=== PATIENT | male | born 2005 | race Caucasian/White ===

== ENCOUNTER 2024-11-19 00:44 | Emergency (ER) | payer OTHER, SELFPAY ==
[2024-11-19 00:47] VITALS: BP 163/93; PULSE 100; RESP 16; TEMP 36.7; O2SAT 100; BMI 33.2
--- NOTE | 2024-11-19 00:49 | EKG12_ITS ---
Test Reason : Suicidal Blood Pressure : */* mmHG Vent. Rate : 87 BPM Atrial Rate : 87 BPM P-R Int : 132 ms QRS Dur : 72 ms QT Int : 338 ms P-R-T Axes : 26 42 22 degrees QTcB Int : 406 ms Normal sinus rhythm with sinus arrhythmia Normal ECG Confirmed by JOSH WILSON, LUPE ([id number]), video news editor SHELBY QUIROS ([id number]) on 11/25/2024 7:03:39 AM Referred By: Phani Confirmed By: LUPE MORENO MD
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
[2024-11-19 01:30] LABS: Absolute Lymphocyte Count 0.95 X10^3/uL (0.83-4.51); Absolute Neutrophil Count 6.9 X10^3/uL (2.0-7.7); Basophil# 0.06 X10^3/uL; Basophil% 0.7 % (0-1); Eosinophil# 0.06 X10^3/uL; Eosinophils% 0.7 % (0-5); Hemoglobin 16.6 g/dL (13.0-16.5); Lymphocyte # 0.95 X10^3/ul (0.83-4.51); Lymphocyte % 11.3 % (19-41); Mean Corp Hgb Conc 33.2 g/dL (32-36); Mean Corpuscular Hgb 26.7 pg (27.0-32.0); Mean Corpuscular Volume 80.5 fL (80-94); Monocyte# 0.45 X10^3/uL; Monocyte% 5.3 % (0-10); NRBC Flagged by Analyzer 0 % (0-5); Neutrophil # 6.87 X10^3/uL (2.7-7.7); Neutrophil % 81.4 % (47-70); Platelet Count 177 K/mm3 (150-450); RBC Distribution Width CV 14.4 % (11.6-14.6); RBC Distribution Width SD 41.3 fl (35.1-43.9); Red Blood Count 6.21 M/mm3 (4.6-6.2); White Blood Count 8.4 K/mm3 (4.4-11.0)
[2024-11-19 01:42] LABS: Alcohol, Blood (Medical)-Serum < 3.0 mg/dL
[2024-11-19 01:44] VITALS: PULSE 98; RESP 19; O2SAT 97
[2024-11-19 01:47] LABS: ALB/GLOB Ratio 1.1 RATIO (0.9-2.4); AST(SGOT) 29 U/L (15-37); Alanine Aminotransfer ALT/SGPT 80 U/L (16-61); Albumin, Serum 4.3 g/dL (3.2-5.0); Alkaline Phosphatase 124 U/L (45-117); Anion Gap 8 (5-15); BUN 12 mg/dL (7-18); BUN/Creat Ratio 12.5 RATIO (10-20); Calcium,Total 9.6 mg/dL (8.5-10.1); Chloride 106 mmol/L (98-107); Creatinine, Serum 0.96 mg/dL (0.70-1.30); EST Glomerular Filtration Rate 106 mL/min (>60); Est Glom Filt Rate - Afr Amer 128 mL/min (>60); Estimated Creatinine Clearance 122.64 ml/min; Glucose 111 mg/dL (74-106); Protein, Total 8.3 g/dL (6.4-8.2); Sodium Level 138 mmol/L (136-145)
[2024-11-19 02:13] LABS: Amphetamine Urine NEGATIVE (<1000 ng/mL); Barbiturate Urine VISTA NEGATIVE (< 200 ng/mL); Benzodiazepine Urine VISTA NEGATIVE (< 200 ng/mL); Cocaine Urine VISTA NEGATIVE (< 300 ng/mL); Ecstacy Urine VISTA NEGATIVE (< 500 ng/mL); Methadone Urine VISTA NEGATIVE (< 300 ng/mL); PCP Urine VISTA NEGATIVE (< 25 ng/mL); THC Urine VISTA NEGATIVE (< 50 ng/mL); Vista UDS pH Range 6
[2024-11-19 02:42] VITALS: BP 123/76; PULSE 77; RESP 17; O2SAT 96
--- NOTE | 2024-11-19 05:44 | ED.RN ---
[facility]OLD[facility] MELGAR CALLED ME TO ASK A FEW QUESTIONS ABOUT PT. AND THEY SAID THAT ITS LIKELY THEY CAN ACCEPT PT BUT THEY COULDN'T ARRIVE UNTIL AFTER 0800. I SAID THAT WORKS GOOD BECAUSE LOCAL GROUND WON'T BE AT OUR FACILITY UNTIL ABOUT AROUND 0800. THEY THOUGHT THAT WAS GOOD NEWS AND THAT THEY WOULD NOTIFY CRISIS WITH THE ACCEPTING INFO.
--- NOTE | 2024-11-19 06:30 | ED.RN ---
INSURANCE CARD FAXED AT @ [phone]
--- NOTE | 2024-11-19 07:00 | ED.RN ---
Report called to Cheryl RÍOS at [facility], questions/concerns answered
--- NOTE | 2024-11-19 07:21 | ED.RN ---
This RN assumes care from MICHOACANO Thompson
[2024-11-19 10:13] VITALS: BP 122/76; PULSE 77; RESP 16; TEMP 36.6; O2SAT 99
== END 2024-11-19 10:16 ==
PROVIDERS: Emergency Provider Emergency Medicine; Visit Provider Emergency Medicine
DX: R45.851 Suicidal ideations (principal); F20.9 Schizophrenia, unspecified; F32.A Depression, unspecified; Z79.899 Other long term (current) drug therapy
CPT/HCPCS: 80053; 80307; 82077; 85025; 93005; 99284